=== PATIENT | female | born 1970 | race African-American/Black ===

== ENCOUNTER 2019-04-10 11:01 | Emergency (ER) | payer MEDICAID ==
[~2019-04-10] VITALS: Ht 175.3 cm; Wt 95.0 kg
[2019-04-10 12:49] LABS: CLARITY URINE CLOUDY (CLEAR); COLOR URINE YELLOW (YELLOW); KETONES URINE NEGATIVE (NEGATIVE); LEUKOCYTE ESTERASE URINE 3+ (NEGATIVE); NITRITE URINE NEGATIVE (NEGATIVE); OCCULT BLOOD URINE NEGATIVE (NEGATIVE); PROTEIN URINE NEGATIVE (NEGATIVE); SPECIFIC GRAVITY URINE 1.016 (1.005-1.030)
[2019-04-10 14:23] VITALS: BP 142/77
== END 2019-04-10 14:25 | disposition home or self-care (01) ==
LOC: ER 11:01
DX: N39.0 Urinary tract infection, site not specified (principal); R10.2 Pelvic and perineal pain; Z98.890 Other specified postprocedural states
CPT/HCPCS: 81003; 81025; 99283